=== PATIENT | female | born 2000 | race Caucasian/White ===

== ENCOUNTER → 2022-09-21 | Outpatient (CLI) | payer OTHER ==
--- NOTE | 2022-09-21 08:08 | US ---
EXAMINATION TYPE: US abdomen complete DATE OF EXAM: 09/21/2022 COMPARISON: NONE CLINICAL INDICATION: Female, 22 years old with history of R11.2 NAUSEA WITH VOMITING; young, thin pat ient with anxiety, not sure of N/V this past week is related to stress or other issue TECHNIQUE: Multiple sonographic images of the abdomen are obtained. FINDINGS: EXAM MEASUREMENTS: Liver Length: 14.2 cm Gallbladder Wall: 0.2 cm CBD: 0.5 cm Spleen: 9.4 cm Right Kidney: 9.0 x 5.2 x 4.9 cm Left Kidney: 8.8 x 4.5 x 6.0 cm Pancreas: wnl Liver: wnl Gallbladder: wnl Evidence for sonographic Saucedo's sign: no CBD: wnl Spleen: wnl Right Kidney: wnl Left Kidney: wnl Upper IVC: wnl Abd Aorta: wnl The liver is homogenous. The intrahepatic portion of the IVC and proximal abdominal aorta are within normal limits. There is no evidence of cholelithiasis. Common bile duct is unremarkable. The visu alized portions of the pancreas are homogenous. The spleen is unremarkable. Kidneys are symmetric a nd free of hydronephrosis. No renal lesions are seen. IMPRESSION: No acute process. No mass or abnormality visualized.
== END | disposition home or self-care (01) ==
LOC: RADUSWWP 06:47
PROVIDERS: ATTEND Family Medicine
DX: R11.2 Nausea with vomiting, unspecified (principal)
CPT/HCPCS: 76700